=== PATIENT | male | born 1940 | race Caucasian/White ===

== ENCOUNTER → 2016-06-16 | Outpatient (CLI) | payer MEDICARE, OTHER | LOC: LAB.O 12:56 | PROVIDERS: ATTEND Urology | DX: R97.20 Elevated prostate specific antigen [PSA] (principal) ==

== ENCOUNTER → 2016-10-27 | Outpatient (CLI) | payer MEDICARE, OTHER | END | disposition home or self-care (01) | LOC: GMAB 10:54 | PROVIDERS: ATTEND Family Medicine | DX: Z51.81 Encounter for therapeutic drug level monitoring (principal) ==

== ENCOUNTER → 2017-02-26 | Outpatient (CLI) | payer MEDICARE, OTHER | END | disposition home or self-care (01) | LOC: GMAB 10:40 | PROVIDERS: ATTEND Family Medicine | DX: Z12.5 Encounter for screening for malignant neoplasm of prostate (principal); I10 Essential (primary) hypertension | CPT/HCPCS: 84443; G0103 ==

== ENCOUNTER → 2017-03-07 | Outpatient (CLI) | payer MEDICARE, OTHER ==
--- NOTE | 2017-03-08 22:14 | RAD ---
EXAM DESCRIPTION: KUB CLINICAL HISTORY: 77 years Male, RENAL CALCULI COMPARISON: May 29, 2013. FINDINGS: Bowel gas pattern is nonspecific. Small amounts of small intestinal gas are noted. There is feces in the colon, especially in the transverse portion and right side. No evidence of bowel obstruction or generalized ileus. No gross organomegaly is identified. No obvious urinary tract calcifications are seen. Multiple calcified pelvic phleboliths are present. There are postoperative and degenerative changes in the lumbar spine, along with slight left convex scoliosis. There are also slight degenerative changes in the hips. Overall, no significant appearing interval change is seen. IMPRESSION: Nonspecific appearance of the abdomen. Electronically signed by: Kit Bolaños 03/08/2017 10:13 PM [facility]
== END | disposition home or self-care (01) ==
LOC: RAD 14:50
PROVIDERS: ATTEND Urology
DX: N20.0 Calculus of kidney (principal)

== ENCOUNTER → 2017-09-17 | Outpatient (CLI) | payer MEDICARE, OTHER | LOC: GMAE 14:26 | PROVIDERS: ATTEND Family Medicine | DX: R97.20 Elevated prostate specific antigen [PSA] (principal) ==

== ENCOUNTER → 2018-03-22 | Outpatient (CLI) | payer MEDICARE, OTHER ==
--- NOTE | 2018-03-22 15:08 | CT ---
EXAM DESCRIPTION: Abdoment/Pelvis w/o Contrast: Computed Tomography. CLINICAL HISTORY: 78 years Male HEMATURIA. History of previous kidney stones. COMPARISON: None. TECHNIQUE: Spiral-axial scans 2.5 x 2.5 mm intervals through the abdomen and pelvis without oral or IV contrast. Coronal and sagittal 2.0 mm reconstructions. Axial - 1.25 mm reconstructions.Total Exam DLP: 538.52 mGy-cm. This exam was performed according to our departmental CT dose-optimization program which includes automated exposure control, adjustment of the mA and/or kV according to patient size and/or use of iterative reconstruction technique; to reduce radiation dose to as low as reasonably achievable (ALARA). FINDINGS: Kidneys and Ureters: 6 cm mass in the left kidney with fluid density and rim calcification. No fatty stranding. 2.6 cm cyst lateral cortex. 1 cm cyst lower pole anterior cortex. 1.5 cm cyst upper pole. No hydronephrosis or kidney stones. 3.5 mm stone inferior collecting system right kidney. Multiple cysts on the right kidney. No hydronephrosis. Also large extrarenal pelvis on the right. Bilateral ureters normal caliber with no stones. Pelvic organs: No calcifications are radiodense stones in the urinary bladder or UVJs. No free fluid. Prostate gland abutting the bladder with central calcifications. Lung bases and pleura: Posterior dependent atelectasis more on the right. No significant pleural thickening or effusion. Coronary artery stents or calcifications.. Liver, stomach, spleen, and adrenal glands: Unremarkable. Pancreas, Gallbladder, and Ducts: Gallbladder is visualized. Duct and pancreas unremarkable. Mesentery: No free air or fluid. No stranding or fascial thickening. Aorta: Moderate atherosclerotic calcification with ectasia. Proximal abdominal aorta caliber 2.9 cm, similar to the lower thoracic aorta. Mid abdominal aorta caliber 2.5 cm. No para-aortic mass.. Small Bowel: Normal caliber. Terminal Ileum/Cecum: Unremarkable. Appendix visualized. Normal density of surrounding fat. Colon: Diffuse fecal material throughout the colon with minimal redundancy of the ascending colon and splenic flexure. Moderate redundancy of the sigmoid colon. No complications. Spine and Bony Pelvis: Posterior fusion L3-L5 with connecting rods bilaterally. Prior augmentation L1. Advanced spondylosis L2-L3. Levoscoliosis lumbar. Bilateral acetabula hypertrophy and fibrocystic changes in the acetabula and lateral femoral heads with over coverage and narrowing of the hip joints. Abdominal Wall/Back Soft Tissues: Unremarkable. IMPRESSION: 1. Multiple cysts in the kidneys bilaterally. Large parapelvic cysts bilaterally. 3.5 mm nonobstructing stone inferior collecting system right kidney. No hydronephrosis or perinephric fluid bilaterally. Ureters are unremarkable. 2. No free air or fluid. Diffuse lumbar spondylosis with lumbar levoscoliosis. L3-L5 posterior fusion bilaterally. Abdominal aortic atherosclerotic changes with ectasia. 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 Electronically signed by: Lars Sexton MD 03/22/2018 3:07 PM [employer]INE[employer]
== END ==
LOC: CT 08:00
PROVIDERS: ATTEND Family Medicine
DX: R31.9 Hematuria, unspecified (principal); N20.0 Calculus of kidney; N28.1 Cyst of kidney, acquired; M47.896 Other spondylosis, lumbar region; Z98.1 Arthrodesis status; I70.0 Atherosclerosis of aorta

== ENCOUNTER → 2018-04-01 | Outpatient (CLI) | payer MEDICARE, OTHER | LOC: GMAE 11:01 | PROVIDERS: ATTEND Family Medicine | DX: I10 Essential (primary) hypertension (principal) ==

== ENCOUNTER → 2018-04-23 | Outpatient (CLI) | payer MEDICARE, OTHER | LOC: GMAE 11:33 | PROVIDERS: ATTEND Family Medicine | DX: R97.20 Elevated prostate specific antigen [PSA] (principal) ==

== ENCOUNTER → 2018-05-03 | Outpatient (CLI) | payer MEDICARE, OTHER ==
--- NOTE | 2018-05-03 14:02 | CT ---
EXAM DESCRIPTION: Abdomen/Pelvis w/Contrast: Computed Tomography. CLINICAL HISTORY: 78 years Male Gross hematuria COMPARISON: Noncontrast CT scan of the abdomen 03/22/2018. TECHNIQUE: Spiral-axial scans at 5 x 5 mm intervals through the abdomen and pelvis, before and after nonionic IV contrast without oral contrast. Postcontrast arterial phase and portal venous phase. Axial 2.5 mm reconstructions. Coronal and sagittal 2.0 mm reconstructions. Delayed scans 7 minutes, liver through the pelvis. Axial-spiral 5mm. No adverse reactions. Total Exam DLP: 1301.49 mGy-cm. This exam was performed according to our departmental dose-optimization program which includes automated exposure control, adjustment of the mA and/or kV according to patient size and/or use of iterative reconstruction technique; to reduce radiation dose to as low as reasonably achievable (ALARA). FINDINGS: Lung bases and pleura: Small pleural parenchymal scar in the right base. No pleural effusion. Atherosclerotic calcifications in the thoracic ectatic aorta. Minimal calcifications coronary arteries. Liver, Stomach, Spleen, Adrenal Glands: Unremarkable. Pancreas, Gallbladder, Ducts: Negative. Kidneys and Ureters: Multiple simple fluid density cyst in the left kidney with the largest exhibiting mass effect on the mid collecting system and renal pelvis measuring 5.6 cm. Smallest cyst and a similar location on the right kidney measures 4.5 cm. Normal caliber of the bilateral ureters. No abnormal calcifications are enhancing masses bilaterally. 4 mm nonobstructing stone in the lower collecting system of the right kidney. Stable since the prior study. No perinephric edema. Mesentery: Unremarkable. Aorta: Minimal to moderate atherosclerotic calcification of the aorta. Diameter of the proximal abdominal aorta 2.7 cm and distal abdominal aorta above the bifurcation is 2.6 cm. Calcification also bilateral common iliac arteries and minimal ectasia. Small Bowel: Intermittent gas and fluid with no significant distention or air-fluid levels. Terminal Ileum/Cecum: TI is negative. Minimal distention of the cecum by fecal matter. Normal caliber of the appendix and normal density of the surrounding fat. Colon: Minimal distention proximal and mid colon by fecal matter and moderate redundancy of the sigmoid colon with fecal matter and gas. No air-fluid levels. Pelvic Organs: Prostate gland 4.5 x 3.4 cm with calcifications abutting the seminal vesicles and the base of the urinary bladder. No significant amount of contrast seen in the urinary bladder even on 7 minute delay images. Minimal bladder wall thickening.. Spine and Bony Pelvis: Lumbar fusion construct L3-L5 with bilateral transpedicular screws. Spondylosis L2-L3. Stable since the prior study with no hardware or bony complications. Levoscoliosis lumbar. Minimal scoliosis inferior thoracic. Bilateral arthrosis and prominent superior lateral acetabular margins bilaterally with minimal joint space narrowing also stable. Abdominal Wall/Back Soft Tissues: Stable since the prior study. IMPRESSION: 1. Multiple bilateral renal cysts appear simple with no enhancing solid renal masses or complex enhancing lesions bilaterally. Large parapelvic cysts bilaterally with mass effect on the renal pelves. No hydronephrosis bilaterally. No hydroureter. Stable 4 mm nonobstructing stone inferior pole right kidney. 2. Mild to moderate constipation with moderate redundancy of the sigmoid colon but no complications. 3. Fusion construct posterior L3-L5 bilaterally with no complications. Bilateral hypertrophic superior lateral acetabular margins with possible over coverage of the femoral heads and femoral acetabular impingement. Bilateral hip joint space narrowing. 4. Prostate gland moderately enlarged calcifications abutting urinary bladder. No IV contrast in the urinary bladder even on the 7 minute delayed images. Consider retrograde cystoscopy. Minimal wall thickening. Distal ureters do not appear obstructed. 5. Abdominal aorta distally 2.6 cm but proximal abdominal aorta same caliber; consistent with aortic ectasia, no aneurysm.*[facility] Best Practice guidelines: If aortic dilatation < 1.5 x proximal segment, this represents ectasia and no follow-up imaging would be recommended. Reference: J Vasc Surg 2009 Oct;50(4 Suppl):S2-49. Electronically signed by: Lars Sexton MD 05/03/2018 1:59 PM MANAGER [employer]
== END ==
LOC: CT 07:30
PROVIDERS: ATTEND Urology
DX: R31.0 Gross hematuria (principal); N42.9 Disorder of prostate, unspecified; N28.1 Cyst of kidney, acquired; K59.00 Constipation, unspecified; Z98.1 Arthrodesis status

== ENCOUNTER → 2018-07-25 | Outpatient (CLI) | payer MEDICARE, OTHER | LOC: GMAE 15:05 | PROVIDERS: ATTEND Family Medicine | DX: R97.20 Elevated prostate specific antigen [PSA] (principal) ==

== ENCOUNTER → 2019-01-15 | Outpatient (CLI) | payer MEDICARE, OTHER ==
--- NOTE | 2019-01-15 17:54 | MRI ---
EXAM DESCRIPTION: Cervical Spine: MRI. CLINICAL HISTORY: 78 years Male CERVICALGIA COMPARISON: Cervical TECHNIQUE: Multiplanar, high-field MRI, multiple sequences, non-contrast Cervical spine. FINDINGS: C3-C4: Moderate loss of disc space with anterior disc bulge. Posterior disc osteophyte bulge abutting the cord with minimal posterior ligament thickening and moderate central canal narrowing. Bilateral small uncinate spurs. Mild narrowing of the left neural foramen. Disc osteophyte complex and moderate spondylosis on the right with moderate narrowing of the right neural foramen. Marginal hypertrophic facet arthrosis right. C4-C5: Disc desiccation and minimal disc space loss more posterior. Anterior disc bulge with endplate ridging. Posterior minimal disc osteophyte bulge but not abutting the cord. Posterior ligament thickening. Mild to moderate canal narrowing. Small right uncinate spur. Moderate right neural foraminal narrowing with left neuroforamen patent minimal bilateral facet arthrosis. C5-C6 bony fusion complete disc space with no canal or neural foraminal stenosis. C6-C7: Moderate spondylosis and disc space loss and desiccation. Posterior disc osteophyte bulge almost abutting the cord. Posterior ligament thickening with bilateral canal narrowing. Bilateral uncinate spurs larger on the right no significant facet arthrosis. Mild to moderate right neural foraminal narrowing. C7-T1: Minimal disc desiccation. Hypertrophic right facet arthrosis and minimal right neural foraminal narrowing. Canal and left neuroforamen are patent. Normal signal in the C2-C3 disc and T1-T2 disc with no bulging. Disc spaces preserved. Canal and neural foramina are patent. Facet joints are unremarkable. Spinal alignment reduced lordosis.. No cord compression or cord edema. Atlantoaxial joint mild to moderate hypertrophic arthrosis.. Base of the cerebellar tonsils is at the level of the foramen magnum. Paravertebral soft tissues unremarkable.. Vertebral bodies are not compressed at any level. Otherwise normal marrow signal in the remaining vertebral bodies and the posterior elements. IMPRESSION: 1. Spondylosis on the right at C3-C4. Moderate narrowing right neural foramen. Moderate central canal narrowing by posterior disc osteophyte bulge. 2. Bulging C4-C5 disc with Mild to moderate canal narrowing and moderate right neural foraminal narrowing by spurs. 3. Moderate spondylosis at C6-C7 with disc space loss. Posterior disc osteophyte bulge abutting the cord. Mild to moderate right neural foraminal narrowing. 4. Complete osseous fusion C5-C6. No canal or neural foraminal stenosis. Electronically signed by: Lars Sexton MD 01/15/2019 5:53 PM CDT
== END ==
LOC: MRI 08:09
PROVIDERS: ATTEND Family Medicine
DX: M47.892 Other spondylosis, cervical region (principal); M50.921 Unspecified cervical disc disorder at C4-C5 level; M50.923 Unspecified cervical disc disorder at C6-C7 level; M43.22 Fusion of spine, cervical region

== ENCOUNTER → 2019-02-05 | Outpatient (CLI) | payer MEDICARE, OTHER | END | disposition home or self-care (01) | LOC: GMAE 15:41 | PROVIDERS: ATTEND Family Medicine | DX: R97.20 Elevated prostate specific antigen [PSA] (principal) ==

== ENCOUNTER → 2019-05-09 | Outpatient (CLI) | payer MEDICARE, OTHER | LOC: GMAE 10:30 | PROVIDERS: ATTEND Family Medicine | DX: R97.20 Elevated prostate specific antigen [PSA] (principal); I10 Essential (primary) hypertension; E78.2 Mixed hyperlipidemia ==

== ENCOUNTER → 2019-12-25 | Outpatient (CLI) | payer MEDICARE, OTHER ==
--- NOTE | 2019-12-25 18:00 | RAD ---
EXAM DESCRIPTION: Cervical Spine, 2-3 Views CLINICAL HISTORY: 79 years Male, CERVICAL RADICULOPATHY COMPARISON: Concurrent MRI Findings: Two view(s)/radiograph(s) Location: Cervical spine C1- C7 demonstrated on the lateral view. Prevertebral soft tissues are unremarkable. No acute fracture or subluxation. Vertebral body heights are maintained. Moderate multilevel degenerative disc disease. No evidence of instability. C5/C6 fusion. Degenerative disc changes most pronounced at C6/C7. IMPRESSION: Multilevel cervical spondylosis. No acute fracture or subluxation. Electronically signed by: Fortino Velásquez MD 12/25/2019 5:58 PM CDT
--- NOTE | 2019-12-26 12:54 | MRI ---
EXAM DESCRIPTION: Cervical Spine: MRI. CLINICAL HISTORY: 79 years Male CERVICAL RADICULOPATHY COMPARISON: MRI scan of the cervical spine in December 2018. TECHNIQUE: Multiplanar, high-field MRI, multiple sequences, non-contrast Cervical spine. FINDINGS: C2-C3: Disc desiccation with disc space maintained. Posterior midline protrusion with slightly hyperintense T2 signal but not abutting the cord. Increased protrusion since the prior study. Mild canal narrowing. Facets are negative. Bilateral neural foramina are patent. C3-C4: Disc desiccation and moderate disc space loss. Posterior broad-based disc bulge/midline protrusion with spurs abutting the cord. Thickening of the posterior ligaments. Moderate canal narrowing. Bilateral uncinate spurs. Right side disc spur complex endplate reactive changes. Borderline right neural foraminal stenosis. Mild left neural foraminal narrowing. No change from the prior study. C4-C5: Anterior disc bulging and spurs. Posterior mild disc bulge. Right uncinate spur and mild to moderate neural foraminal narrowing. Posterior ligament thickening. Moderate canal narrowing. Left neuroforamen is patent. C5-C6 interbody fusion is complete. No canal or neural foraminal narrowing. Facet joints are negative. No change from the prior study. C6-C7: Disc desiccation and mild to moderate disc space loss. Bilateral mild endplate reactive changes and neural foraminal narrowing more on the right. Bilateral facet joints are unremarkable. Stable since the prior study. C7-T1: Disc desiccation with disc space preserved and no bulging. Minimal posterior bulging. Mild hypertrophy of the right facet joint narrowing the neural foramen. Facet joint and neural foramina are negative. No interval change. Normal signal in the T1-T2 with no bulging. Disc spaces preserved. Canal and neural foramina are patent. Facet joints are unremarkable. Spinal alignment mild lordosis with cervical thoracic kyphosis.. No cord compression or cord edema. Atlantoaxial joint with mild hypertrophy.. Base of the cerebellar tonsils is above the foramen magnum. Paravertebral soft tissues unremarkable. Vertebral bodies are not compressed at any level. Normal marrow signal in the remaining vertebral bodies and the posterior elements. IMPRESSION: 1. Right side spondylosis C3-C4 and borderline right neural foraminal stenosis. Correlate for right C4 radiculopathy. No change from the prior study. 2. Please refer to the FINDINGS for discussion of results at other disc space levels. Electronically signed by: Lars Sexton MD 12/26/2019 12:52 PM CDT
== END ==
LOC: MRI 08:00
PROVIDERS: ATTEND Neurological Surgery
DX: M47.22 Other spondylosis with radiculopathy, cervical region (principal); M48.02 Spinal stenosis, cervical region